=== PATIENT | male | born 1990 | race Caucasian/White ===

== ENCOUNTER 2016-12-05 17:56 | Emergency (ER) | payer OTHER ==
--- NOTE | 2016-12-05 18:37 | ER Document Report ---
ED Medical Screen (RME) - General Stated Complaint: ABDOMINAL PAIN Notes: 26 yo male c/o abdominal pain. started periumbilical area, now to RLQ. x 3 days. + n/v, vomited x 1 today. + subjective fever. + headache. + diarrhea. - Related Data Allergies/Adverse Reactions: No Known Allergies Allergy (Verified 02/19/13 15:54) Past Medical History Past Surgical History: Reports: Hx Orthopedic Surgery - hand - Immunizations Immunizations up to date: Yes Hx Diphtheria, Pertussis, Tetanus Vaccination: Yes Physical Exam - Vital signs Vitals: Temp Pulse Resp BP Pulse Ox 98.3 F 83 16 139/74 H 100 12/05/16 18:01 12/05/16 18:01 12/05/16 18:01 12/05/16 18:01 12/05/16 18:01 Course - Vital Signs Vital signs: Temp Pulse Resp BP Pulse Ox 98.3 F 83 16 139/74 H 100 12/05/16 18:01 12/05/16 18:01 12/05/16 18:01 12/05/16 18:01 12/05/16 18:01
[2016-12-05 19:12] LABS: ABSOLUTE EOSINOPHILS # (AUTO) 0.2 10^3/uL (0.0-0.6); ABSOLUTE LYMPHOCYTES (AUTO) 1.8 10^3/uL (0.5-4.7); ABSOLUTE MONOCYTES (AUTO) 0.8 10^3/uL (0.1-1.4); ABSOLUTE NEUT (AUTO) 5.9 10^3/uL (1.7-8.2); BASOPHILS % (AUTO) 0.4 % (0-2); HEMATOCRIT 46.8 % (37.9-51.0); HEMOGLOBIN 15.6 g/dL (13.5-17.0); LYMPHOCYTES % (AUTO) 20.7 % (13-45); MEAN CORPUSCULAR HEMOGLOBIN 29.5 pg (27.0-33.4); MEAN CORPUSCULAR HGB CONC 33.3 g/dL (32.0-36.0); MEAN CORPUSCULAR VOLUME 88 fl (80-97); MONOCYTES % (AUTO) 8.8 % (3-13); RED CELL DISTRIBUTION WIDTH 13.4 % (11.5-14.0); SEGMENTED NEUTROPHILS % (AUTO) 68.1 % (42-78); WHITE BLOOD COUNT 8.7 10^3/uL (4.0-10.5)
[2016-12-05 19:24] LABS: ALANINE AMINOTRANSFERASE 28 U/L (21-72); ALKALINE PHOSPHATASE 67 U/L (38-126); ANION GAP 14 (5-19); ASPARTATE AMINO TRANSFERASE 16 U/L (17-59); BILIRUBIN,TOTAL 0.6 mg/dL (0.2-1.3); BLOOD UREA NITROGEN 13 mg/dL (7-20); CALCIUM 9.7 mg/dL (8.4-10.2); CARBON DIOXIDE 26 mmol/L (22-30); CHLORIDE 101 mmol/L (98-107); CREATININE RESULT 0.84 mg/dL (0.52-1.25); GLUCOSE 91 mg/dL (75-110); LIPASE 34.6 U/L (23-300); POTASSIUM 3.9 mmol/L (3.6-5.0); SODIUM 140.8 mmol/L (137-145); TOTAL PROTEIN 7.7 g/dL (6.3-8.2)
[2016-12-05] MEDS ORDERED: KETOROLAC TROMETHAMINE INJ/PF 30 MG/1 ML SDV IV ONE (20:55)
[2016-12-05] MEDS ORDERED: ONDANSETRON HCL INJ/PF 4 MG/2 ML SDV IV ONE (20:55)
[2016-12-05] MEDS ORDERED: NORMAL SALINE 1000 ML 1,000 ML IV ONE (20:55)
--- NOTE | 2016-12-05 20:59 | ER Document Report ---
ED General - General Chief Complaint: Abdominal Pain Stated Complaint: ABDOMINAL PAIN Notes: Patient is a 26-year-old male without past history, no prior surgical history who presents with 4 days of diffuse abdominal pain that has become more localized to the right lower quadrant in the past 2 days. Described as a dull, constant, aching pain. Nothing improves or worsens this pain. States he has had one episode of nonbilious vomiting associated with this pain. No history of similar symptoms in the past. He has not seen his primary care physician regarding today's concerns. Denies any testicular pain, dysuria, flank pain, chest pain, or shortness of breath. TRAVEL OUTSIDE OF THE [place] IN LAST 30 DAYS: No - Related Data Allergies/Adverse Reactions: No Known Allergies Allergy (Verified 12/05/16 18:35) Past Medical History - General Information source: Patient - Social History Smoking Status: Never Smoker Chew tobacco use (# tins/day): No Frequency of alcohol use: None Drug Abuse: None Lives with: Spouse/Significant other Family History: Reviewed & Not Pertinent, Other - pneumonia Patient has suicidal ideation: No Patient has homicidal ideation: No Renal/ Medical History: Denies: Hx Peritoneal Dialysis Past Surgical History: Reports: Hx Orthopedic Surgery - hand - Immunizations Immunizations up to date: Yes Hx Diphtheria, Pertussis, Tetanus Vaccination: Yes Review of Systems - Review of Systems Notes: Constitutional: Negative for fever. HENT: Negative for sore throat. Eyes: Negative for visual changes. Cardiovascular: Negative for chest pain. Respiratory: Negative for shortness of breath. Gastrointestinal: Positive for abdominal pain and vomiting. Genitourinary: Negative for dysuria. Musculoskeletal: Negative for back pain. Skin: Negative for rash. Neurological: Negative for headaches, weakness or numbness. 10 point ROS negative except as marked above and in HPI. Physical Exam - Vital signs Vitals: Temp Pulse Resp BP Pulse Ox 98.3 F 83 16 139/74 H 100 12/05/16 18:01 12/05/16 18:01 12/05/16 18:01 12/05/16 18:01 12/05/16 18:01 Interpretation: Normal Notes: PHYSICAL EXAMINATION: GENERAL: Well-appearing, well-nourished and in no acute distress. HEAD: Atraumatic, normocephalic. EYES: Pupils equal round and reactive to light, extraocular movements intact, sclera anicteric, conjunctiva are normal. ENT: nares patent, oropharynx clear without exudates. Moist mucous membranes. NECK: Normal range of motion, supple without lymphadenopathy LUNGS: Breath sounds clear to auscultation bilaterally and equal. No wheezes rales or rhonchi. HEART: Regular rate and rhythm without murmurs ABDOMEN: Soft, mild tenderness to the palpation of the right lower quadrant, normoactive bowel sounds. Mild rebound tenderness in the right lower quadrant. No masses appreciated. : No testicular tenderness on palpation. No epididymal tenderness. Positive cremasteric reflex bilaterally EXTREMITIES: Normal range of motion, no pitting or edema. No cyanosis. NEUROLOGICAL: No focal neurological deficits. Moves all extremities spontaneously and on command. PSYCH: Normal mood, normal affect. SKIN: Warm, Dry, normal turgor, no rashes or lesions noted. Course - Re-evaluation Re-evalutation: 12/05/16 20:55 Patient presents with an exam and history concerning for possible acute appendicitis. Differential also includes possible ileus, less likely to be acute biliary pathology given clinical exam and history. Initial vitals without fever or tachycardia. He denies any testicular pain. Initial laboratories unremarkable. CT abdomen and pelvis with contrast will be obtained. 12/05/16 23:24 CT scan is unremarkable. Patient does not have any focal abdominal tenderness at this point. CT does visualize the appendix and it is noted to be completely normal. The remainder of his laboratories are unremarkable. At this time based on his repeat abdominal exam being reassuring, a CT that is negative for acute appendicitis with appropriate visualization of the appendix, normal white blood cell count, and no fever do not suspect an appendicitis at this point. No evidence of torsion or epididymitis on testicular exam.At this time will discharge with return precautions and follow-up recommendations. Verbal discharge instructions given a the bedside and opportunity for questions given. Medication warnings reviewed. Patient is in agreement with this plan and has verbalized understanding of return precautions and the need for primary care follow-up in the next 24-72 hours. 12/06/16 03:11 - Vital Signs Vital signs: Temp Pulse Resp BP Pulse Ox 97.9 F 68 16 144/79 H 99 12/05/16 23:59 12/05/16 23:59 12/05/16 23:59 12/05/16 23:59 12/05/16 23:59 - Laboratory Result Diagrams: 12/05/16 18:50 12/05/16 18:50 Laboratory results interpreted by me: 12/05/16 18:50 AST 16 L Discharge - Discharge Clinical Impression: Abdominal pain Qualifiers: Abdominal location: right lower quadrant Qualified Code(s): R10.31 - Right lower quadrant pain Condition: Good Disposition: HOME, SELF-CARE Additional Instructions: You have been seen in the Emergency Department (ED) for abdominal pain. Your evaluation did not identify a clear cause of your symptoms but was generally reassuring. Please follow up with your doctor as soon as possible regarding today's emergent visit and the symptoms that are bothering you. Return to the ED if your abdominal pain worsens or fails to improve, you develop bloody vomiting, bloody diarrhea, you are unable to tolerate fluids due to vomiting, fever greater than 101, or other symptoms that concern you.
[2016-12-05 22:57] LABS: APPEARANCE,URINE CLEAR; BILIRUBIN,URINE NEGATIVE (NEGATIVE); GLUCOSE, URINE NEGATIVE (NEGATIVE); KETONES,URINE NEGATIVE (NEGATIVE); LEUKOCYTE ESTERASE,URINE NEGATIVE (NEGATIVE); NITRITE,URINE NEGATIVE (NEGATIVE); PROTEIN,URINE NEGATIVE (NEGATIVE); UROBILINOGEN,URINE NEGATIVE mg/dL (<2.0)
[2016-12-05] MEDS ORDERED: ONDANSETRON ODT 4 MG TAB (6 TAB/DSPK) PO PRN (23:27)
[2016-12-05] MEDS ORDERED: HYDROCODONE/ACETAMINOPHEN 5-325 MG 6 TAB/DSPK PO PRN (23:27)
[2016-12-06 00:02] VITALS: BP 144/79
== END 2016-12-05 23:59 | disposition home or self-care (01) ==
LOC: ER 17:56
DX: R10.31 Right lower quadrant pain (principal)
CPT/HCPCS: 99284; 96361; 96374; 96375; 36415; 83690; 85025; 80053; 81001; 74177; J1885; J2405; J7030

== ENCOUNTER 2018-03-08 14:37 | Emergency (ER) | payer OTHER ==
[2018-03-08 14:46] VITALS: BP 143/83
[2018-03-08] MEDS ORDERED: KETOROLAC TROMETHAMINE 60 MG/2 ML SDV IM ONE (15:32)
--- NOTE | 2018-03-08 15:35 | ER Document Report ---
ED Medical Screen (RME) - General Chief Complaint: Flank Pain Stated Complaint: FLANK PAIN Time Seen by Provider: 03/08/18 15:27 Notes: 27-year-old male presents emergency department complaining of left-sided back pain that started 3 days ago and then 2 days ago did end up radiating around to his left testicle and became associated with small amount of blood in his urine. [facility] which partially but did not completely relieve his pain. States that the pain acutely worsened last night and he is here now because he is worried about what might be wrong with his testicle and if he has a kidney stone. Admits vomiting , denies fevers. TRAVEL OUTSIDE OF THE [place] IN LAST 30 DAYS: No - Related Data Allergies/Adverse Reactions: No Known Allergies Allergy (Verified 03/08/18 14:38) Past Medical History - Social History Cigarette use (# per day): No Chew tobacco use (# tins/day): Yes Frequency of alcohol use: None Drug Abuse: None Renal/ Medical History: Denies: Hx Peritoneal Dialysis Past Surgical History: Reports: Hx Orthopedic Surgery - hand, Hx Tonsillectomy - adnoids - Immunizations Immunizations up to date: Yes Hx Diphtheria, Pertussis, Tetanus Vaccination: Yes Review of Systems - Review of Systems Constitutional: No symptoms reported EENT: No symptoms reported Gastrointestinal: See HPI, Vomiting Genitourinary: See HPI, Flank pain Male Genitourinary: See HPI, Testicular pain -: Yes All other systems reviewed and negative Physical Exam - Vital signs Vitals: Temp Pulse Resp BP Pulse Ox 98.4 F 79 16 143/83 H 97 03/08/18 14:45 03/08/18 14:45 03/08/18 14:45 03/08/18 14:45 03/08/18 14:45 Interpretation: Hypertensive - General General appearance: Appears well, Alert In distress: None - HEENT Head: Normocephalic, Atraumatic Eyes: Normal - Respiratory Respiratory status: No respiratory distress Course - Re-evaluation Re-evalutation: 03/08/18 15:34 CT scan renal protocol will be ordered to look for kidney stone which I think is the most likely diagnosis however given the high risk nature of testicular pain it is reasonable to order an ultrasound looking for testicular torsion. Both of these options were discussed with the patient who is in agreement with the plan. Pain will be treated with Toradol. Urinalysis will be ordered to look for blood or infection. - Vital Signs Vital signs: Temp Pulse Resp BP Pulse Ox 98.4 F 79 16 143/83 H 97 03/08/18 14:45 03/08/18 14:45 03/08/18 14:45 03/08/18 14:45 03/08/18 14:45
[2018-03-08 16:18] LABS: ABSOLUTE BASOPHILS # (AUTO) 0.1 10^3/uL (0.0-0.2); ABSOLUTE EOSINOPHILS # (AUTO) 0.2 10^3/uL (0.0-0.6); ABSOLUTE LYMPHOCYTES (AUTO) 1.7 10^3/uL (0.5-4.7); ABSOLUTE MONOCYTES (AUTO) 0.9 10^3/uL (0.1-1.4); BASOPHILS % (AUTO) 0.5 % (0-2); EOSINOPHILS % (AUTO) 1.4 % (0-6); HEMOGLOBIN 15.5 g/dL (13.5-17.0); MEAN CORPUSCULAR HEMOGLOBIN 29.8 pg (27.0-33.4); MEAN CORPUSCULAR HGB CONC 33.6 g/dL (32.0-36.0); MEAN CORPUSCULAR VOLUME 89 fl (80-97); MONOCYTES % (AUTO) 7.9 % (3-13); PLATELET COUNT 319 10^3/uL (150-450); RED BLOOD COUNT 5.18 10^6/uL (4.35-5.55); SEGMENTED NEUTROPHILS % (AUTO) 76.2 % (42-78); TOTAL CELLS COUNTED % (AUTO) 100 %; WHITE BLOOD COUNT 11.8 10^3/uL (4.0-10.5)
[2018-03-08 16:24] LABS: APPEARANCE,URINE SLIGHTLY-CLOUDY; BILIRUBIN,URINE NEGATIVE (NEGATIVE); COLOR,URINE YELLOW; GLUCOSE, URINE NEGATIVE (NEGATIVE); KETONES,URINE NEGATIVE (NEGATIVE); LEUKOCYTE ESTERASE,URINE SMALL (NEGATIVE); NITRITE,URINE NEGATIVE (NEGATIVE); PROTEIN,URINE NEGATIVE (NEGATIVE); URINE SPECIFIC GRAVITY 1.023; UROBILINOGEN,URINE NEGATIVE mg/dL (<2.0)
[2018-03-08 16:37] LABS: ALANINE AMINOTRANSFERASE 34 U/L (21-72); ALBUMIN 4.6 g/dL (3.5-5.0); ALKALINE PHOSPHATASE 59 U/L (38-126); ANION GAP 16 (5-19); ASPARTATE AMINO TRANSFERASE 15 U/L (17-59); BILIRUBIN,DIRECT 0.3 mg/dL (0.0-0.4); BILIRUBIN,TOTAL 0.3 mg/dL (0.2-1.3); BLOOD UREA NITROGEN 15 mg/dL (7-20); CARBON DIOXIDE 27 mmol/L (22-30); CHLORIDE 102 mmol/L (98-107); GLUCOSE 93 mg/dL (75-110); POTASSIUM 4.4 mmol/L (3.6-5.0); SODIUM 145.3 mmol/L (137-145); TOTAL PROTEIN 7.7 g/dL (6.3-8.2)
--- NOTE | 2018-03-08 16:41 | RADIOLOGY REPORT (SQ) ---
EXAM DESCRIPTION: CT LTD RENAL STONE PROTOCOL ON COMPLETED DATE/TIME: 03/08/2018 4:17 pm REASON FOR STUDY: left flank pain, rad to testicle COMPARISON: 12/05/2016 TECHNIQUE: CT scan of the abdomen and pelvis performed without intravenous or oral contrast. Images reviewed with lung, soft tissue, and bone windows. Reconstructed coronal and sagittal MPR images revi ewed. All images stored on PACS. All CT scanners at this facility use dose modulation, iterative reconstruction, and/or weight based d osing when appropriate to reduce radiation dose to as low as reasonably achievable (ALARA). [facility]: Dose Right [facility]: CareDose [facility]: Dose Right [facility]: Teradose 4D [facility]: [employer] Squared RADIATION DOSE: CT Rad equipment meets quality standard of care and radiation dose reduction techniq ues were employed. CTDIvol: 19.1 mGy. DLP: 1085 mGy-cm.mGy. LIMITATIONS: None. FINDINGS: LOWER CHEST: No significant findings. No nodules or infiltrates. NON-CONTRASTED LIVER, SPLEEN, ADRENALS: Evaluation limited by lack of IV contrast. No identified sign ificant masses. PANCREAS: No masses. No peripancreatic inflammatory changes. GALLBLADDER: No identified stones by CT criteria. No inflammatory changes to suggest cholecystitis. RIGHT KIDNEY AND URETER: No suspicious masses. Assessment limited by lack of IV contrast. No signif icant calcifications. No hydronephrosis or hydroureter. LEFT KIDNEY AND URETER: No suspicious masses. Assessment limited by lack of IV contrast. 5 mm calci fied stone in the proximal left ureter with mild- moderate hydronephrosis. There is an additional 5 mm calcified stone the the lower pole calyx. AORTA AND RETROPERITONEUM: No aneurysm. No retroperitoneal masses or adenopathy. BOWEL AND PERITONEAL CAVITY: No obvious masses or inflammatory changes. No free fluid. APPENDIX: Normal. PELVIS, BLADDER, AND ABDOMINAL WALL:No abnormal masses. No free fluid. Bladder normal. BONES: No acute findings. 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 OTHER: No other significant finding. IMPRESSION: 5 mm calcified stone in the proximal left ureter with mild- moderate hydronephrosis. COMMENT: Quality ID # [id number]: Final reports with documentation of one or more dose reduction techniques (e.g., Automated exposure control, adjustment of the mA and/or kV according to patient size, use of iterative reconstruction technique) TECHNICAL DOCUMENTATION: JOB ID: [id number] [place]-72 2010 [employer]- All Rights Reserved Reading location - IP/workstation name: [email or web address]
[2018-03-08] MEDS ORDERED: CEFTRIAXONE INJ 500 MG VIAL IV ONE (16:51)
[2018-03-08] MEDS ORDERED: RINGERS SOLUTION,LACTATED 1,000 ML IV ONE (16:51)
[2018-03-08] MEDS ORDERED: ONDANSETRON HCL INJ/PF 4 MG/2 ML SDV IV ONE (16:52)
[2018-03-08] MEDS ORDERED: MORPHINE SULFATE 10 MG/ML INJ IV ONE (16:52)
--- NOTE | 2018-03-08 17:12 | RADIOLOGY REPORT (SQ) ---
EXAM DESCRIPTION: U/S SCROTUM W/DOPPLER COMPLETED DATE/TIME: 03/08/2018 5:02 pm REASON FOR STUDY: left flank pain, rad to testicle COMPARISON: None. TECHNIQUE: Static and realtime leon scale imaging of the scrotum and testes. Selected color Doppler and spectral images recorded to document blood flow. LIMITATIONS: None. FINDINGS: RIGHT: TESTICLE: Normal size. Normal blood flow. No mass. Incidental note is made of numerous punctate ec hogenic foci throughout the parenchyma, consistent with microcalcifications. EPIDIDYMIS: Normal. HYDROCELE OR VARICOCELE: No. HERNIA OR EXTRA-TESTICULAR MASS: No. OTHER: No other significant finding. LEFT: TESTICLE: Normal size. Normal blood flow. No mass. Incidental note is made of numerous punctate ec hogenic foci throughout the parenchyma, consistent with microcalcifications. EPIDIDYMIS: Normal. HYDROCELE OR VARICOCELE: No. HERNIA OR EXTRA-TESTICULAR MASS: No. OTHER: No other significant finding. IMPRESSION: No findings to correlate to the patient's reported radiating left flank pain. 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 TECHNICAL DOCUMENTATION: JOB ID: [id number] All Rights Reserved Reading location - IP/workstation name: [email or web address]
[2018-03-08 17:47] LABS: CHLAM PCR NOT DETECTED (NOT DETECT); GON PCR NOT DETECTED (NOT DETECT)
--- NOTE | 2018-03-08 18:59 | ER Document Report ---
ED General - General Chief Complaint: Flank Pain Stated Complaint: FLANK PAIN Time Seen by Provider: 03/08/18 15:27 Mode of Arrival: Ambulatory Information source: Patient Notes: This is a 27-year-old man with no medical problems who presents to the emergency room with 3 day history of left flank pain and left testicle pain. Patient states his testicle started to hurt him in 3-4 this morning. He denies any trauma. He denies any fever. He denies any burning on urination. He denies any STDs. Patient was seen 3 days ago at the [facility] and told presumptively that he has a kidney stone and sent home with ibuprofen and Flomax. He presents with worsening pain. TRAVEL OUTSIDE OF THE [place] IN LAST 30 DAYS: No - HPI Onset: Last week Onset/Duration: Gradual Quality of pain: Dull Severity: Moderate Pain Level: 2 Associated symptoms: denies: Chest pain, Fever, Shortness of breath Exacerbated by: Denies Relieved by: Denies Similar symptoms previously: Yes Recently seen / treated by doctor: Yes - Related Data Allergies/Adverse Reactions: No Known Allergies Allergy (Verified 03/08/18 14:38) Past Medical History - General Information source: Patient - Social History Smoking Status: Former Smoker Cigarette use (# per day): No Chew tobacco use (# tins/day): Yes Frequency of alcohol use: None Drug Abuse: None Lives with: Family Family History: Reviewed & Not Pertinent, Other - pneumonia Patient has suicidal ideation: No Patient has homicidal ideation: No - Medical History Medical History: Negative Renal/ Medical History: Denies: Hx Peritoneal Dialysis Past Surgical History: Reports: Hx Orthopedic Surgery - hand, Hx Tonsillectomy - adnoids - Immunizations Immunizations up to date: Yes Hx Diphtheria, Pertussis, Tetanus Vaccination: Yes Review of Systems - Review of Systems Constitutional: denies: Chills, Fever EENT: No symptoms reported Cardiovascular: No symptoms reported Respiratory: No symptoms reported Gastrointestinal: See HPI Genitourinary: See HPI Male Genitourinary: See HPI Musculoskeletal: No symptoms reported Skin: No symptoms reported Hematologic/Lymphatic: No symptoms reported Neurological/Psychological: No symptoms reported Physical Exam - Vital signs Vitals: Temp Pulse Resp BP Pulse Ox 98.4 F 79 16 143/83 H 97 03/08/18 14:45 03/08/18 14:45 03/08/18 14:45 03/08/18 14:45 03/08/18 14:45 Notes: Physical exam: GENERAL: A 7-year-old man, alert and oriented 3, no acute distress HEAD: Atraumatic, normocephalic. EYES: Pupils equal round and reactive to light, extraocular movements intact, sclera anicteric, conjunctiva are normal. ENT: TMs normal, nares patent, oropharynx clear without exudates. Moist mucous membranes. NECK: Normal range of motion, supple without obvious mass or JVD. LUNGS: Breath sounds clear to auscultation bilaterally and equal. No wheezes rales or rhonchi. HEART: Regular rate and rhythm without murmurs, rubs or gallops. ABDOMEN: Soft, normoactive bowel sounds. No tenderness to palpation. No guarding, no rebound. No masses appreciated. Testicles: Left testicle tender, no swelling. Positive cremaster reflex. Mild tenderness of the epididymis. Again, the epididymis feels soft and there is no swelling. No obvious torsion clinically. Right testicle is nontender and without swelling. EXTREMITIES: Normal range of motion, no pitting or edema. No clubbing or cyanosis. NEUROLOGICAL: Cranial nerves II through XII grossly intact. Normal speech, moving all extremities. PSYCH: Normal mood, normal affect. SKIN: Warm, Dry, normal turgor, no rashes or lesions noted. Course - Re-evaluation Re-evalutation: 03/08/18 18:[address] Champagne of urology and reviewed patient's labs as well as the CT report. Plan will be for the patient to follow-up in his office. Patient was given IV ceftriaxone while in the ER. He has not had any fever. He is not toxic appearing at all (he looks quite good). He will follow-up in the office. A urine culture was sent. - Vital Signs Vital signs: Temp Pulse Resp BP Pulse Ox 98.4 F 79 16 143/83 H 97 03/08/18 14:45 03/08/18 14:45 03/08/18 14:45 03/08/18 14:45 03/08/18 14:45 - Laboratory Result Diagrams: 03/08/18 16:00 03/08/18 16:00 Laboratory results interpreted by me: 03/08/18 03/08/18 03/08/18 16:00 16:00 16:00 WBC 11.8 H Absolute Neutrophils 9.0 H Sodium 145.3 H AST 15 L Urine Blood LARGE H Ur Leukocyte Esterase SMALL H Urine Ascorbic Acid 40 H - Diagnostic Test Radiology reviewed: Image reviewed, Reports reviewed - Total ultrasound shows no evidence of torsion. CT shows a proximal left ureter stone with mild to moderate hydronephrosis Discharge - Discharge Clinical Impression: Left proximal ureter stone Condition: Stable Disposition: HOME, SELF-CARE Instructions: Kidney Stone ([facility]) Additional Instructions: As we discussed the CT of the abdomen showed that you do have a 5 mm kidney stone in the left ureter. The recommendations are as follows: Continue the [facility]. Drink plenty of fluids. Take ibuprofen for pain. Zofran for nausea Take the Keflex (start tomorrow): This is an antibiotic. Take the narcotic as prescribed for pain unrelieved with the Motrin. It is recommended you follow-up with urologist. [facility]: They may want you to follow-up with their own urologist. Otherwise, I have put the number down for the urologist affiliated with this hospital. In the meantime: Return to the emergency room for worsening pain, fever ( temperature greater than 100.4) or any concerns or getting worse. The pain medicine you're taking prescribed as a narcotic. There are several important things you should know about this medicine: 1. This medicine contains Tylenol: It is important that you do not take Tylenol (or acetaminophen) while on this medicine. Tylenol is metabolized by the liver and taking too much Tylenol (acetaminophen) can lay to liver damage and even liver failure. 2. Taking narcotics for too long can lead to physical and mental dependence. Take this medicine only if really needed and in the lowest quantity to achieve pain relief. 3. Do not drink alcohol while on this medicine. Alcohol interacts with narcotics and the combination can be dangerous. 4. Do not drive or operate machinery while on this medicine. 5. Narcotics do cause constipation, so drink plenty of fluids and daily stool softeners. Prescriptions: Cephalexin Monohydrate [Keflex 500 mg Capsule] 500 mg PO Q6H 7 Days #28 capsule Ondansetron HCl [Zofran 4 mg Tablet] 1 - 2 tab PO Q4H PRN #10 tablet PRN Reason: Oxycodone HCl/Acetaminophen [Percocet 5-325 mg Tablet] 1 - 2 tab PO ASDIR PRN # 25 tablet PRN Reason: Forms: Return to Work Referrals: AMANDA CHAMPAGNE II, MD [SAMI VEE] - Follow up as needed (This is the number the urologist associated with the hospital: Call the office on Saturday for an appointment this week. You may want to check with the [facility] first (they may want you to see 1 of their urologist).)
== END 2018-03-08 19:41 | disposition home or self-care (01) ==
LOC: ER 14:37
DX: N13.2 Hydronephrosis with renal and ureteral calculous obstruction (principal); N50.812 Left testicular pain; Z87.891 Personal history of nicotine dependence
CPT/HCPCS: 99284; 96372; 96374; 96375; 36415; 87086; 85025; 80053; 81001; 87491; 87591; 76870; 93976; 76380; J1885; J2270; J0696; J2405